=== PATIENT | male | born 1965 | race Caucasian/White ===

== ENCOUNTER → 2018-07-07 | Outpatient (CLI) | payer MEDICAID ==
--- NOTE | 2018-07-07 11:13 | RADIOLOGY REPORT (SQ) ---
EXAM DESCRIPTION: C SP 4 OR 5 VIEWS COMPLETED DATE/TIME: 07/07/2018 10:55 am REASON FOR STUDY: ACUTE PAIN OF RT/LT SHOULDER; CERVICAL RADICULOPATHY M25.511 PAIN IN RIGHT SHOULD ER COMPARISON: None. NUMBER OF VIEWS: Five views. TECHNIQUE: AP, lateral, obliques and odontoid radiographic images acquired of the cervical spine. LIMITATIONS: None. FINDINGS: MINERALIZATION: Normal. ALIGNMENT: Anatomic. VERTEBRAE: Vertebral bodies of normal height. DISCS: Moderate to moderate severe disc space narrowing at C6-C7 with mild anterior osteophytes. FORAMINA: Moderate foraminal narrowing at C5-C6 and C6-C7 on the right. LATERAL AND POSTERIOR ELEMENTS: Facets, lateral masses and spinous processes without significant find ings. HARDWARE: None in the spine. SOFT TISSUES: No masses or calcifications. Lung apices clear. OTHER: Focal areas of calcifications in the upper soft tissues of the neck, may represent atheroscle rotic changes in the bilateral carotid arteries. IMPRESSION: 1. Moderate to moderate severe degenerative disc disease at C5-C6. 2. Moderate foraminal narrowing at C5-C6 and C6-C7 on the right. 3. No acute osseous findings. TECHNICAL DOCUMENTATION: JOB ID: [id number] [employer]- All Rights Reserved Reading location - IP/workstation name: [email or web address]
--- NOTE | 2018-07-07 11:17 | RADIOLOGY REPORT (SQ) ---
EXAM DESCRIPTION: SHOULDER BILAT 2 OR MORE VIEWS COMPLETED DATE/TIME: 07/07/2018 10:55 am REASON FOR STUDY: ACUTE PAIN OF RT/LT SHOULDER; CERVICAL RADICULOPATHY M25.511 PAIN IN RIGHT SHOULD ER COMPARISON: None. NUMBER OF VIEWS: Three views. TECHNIQUE: Internal rotation, external rotation, and Y view images acquired of the right and left sh oulder. LIMITATIONS: None. FINDINGS: MINERALIZATION: Normal. BONES: No acute fracture or dislocation. Small well-circumscribed sclerotic lesion in the right scap raffaele, likely on a benign basis. JOINTS: No dislocation. VISUALIZED LUNGS AND RIBS: No pneumothorax. No rib fracture. SOFT TISSUES: No radiopaque foreign body. OTHER: No other significant finding. IMPRESSION: 1. NEGATIVE STUDY OF THE RIGHT AND LEFT SHOULDERS. TECHNICAL DOCUMENTATION: JOB ID: [id number] [employer]- All Rights Reserved Reading location - IP/workstation name: [email or web address]
== END ==
LOC: OD 10:32
PROVIDERS: ATTEND Family Medicine
DX: M25.511 Pain in right shoulder (principal); M25.512 Pain in left shoulder; M50.122 Cervical disc disorder at C5-C6 level with radiculopathy
CPT/HCPCS: 72050